=== PATIENT | male | born 1955 | race Caucasian/White ===

== ENCOUNTER → 2022-10-07 | Outpatient (CLI) | payer OTHER ==
[~2022-10-07] MED LIST: ASPI81EC PO; CLOP75 PO; GLIM2 PO; GLIP10; LOSA50; METF500 PO; METO25ER; NIAC500ER PO; PRAV20; Protonix40 M1; SITA100T2 PO; TELM80 PO
== END | disposition home or self-care (01) ==
LOC: LAB 16:10 → LAB SHORT 16:10
DX: E11.65 Type 2 diabetes mellitus with hyperglycemia (principal)
CPT/HCPCS: 82043